=== PATIENT | female | born 1985 | race Caucasian/White ===

== ENCOUNTER → 2016-12-27 | Outpatient (CLI) | payer OTHER | LOC: FIMAGING 14:43 | PROVIDERS: ATTEND Physician Assistant Medical | DX: M25.561 Pain in right knee (principal) ==

== ENCOUNTER 2017-08-04 12:19 | Emergency (ER) | payer OTHER ==
[2017-08-04 12:29] VITALS: RESP 18; TEMP 99
[2017-08-04] MEDS ORDERED: NS 1,000 ML IV ONE (12:45)
--- NOTE | 2017-08-04 12:48 | EDPHY ---
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 She states that she has constant abdominal cramping and bloating. Frequent diarrhea, occasional episodes of rectal pain. General abdominal discomfort. No vomiting. No bloody stool. No fevers. She has had the symptoms for about 10 years. She saw her gastrologist but 10 years ago at [facility] and had a colonoscopy. She was diagnosed with irritable bowel syndrome as well as a small internal hemorrhoid. Since then her symptoms have continued and possibly worsened. She is on an antidepressant and anxiety medication. She states that last night she became extremely anxious and was concerned that maybe she has developed ovarian cancer because she has never been this bloated before. She did have a episode of diarrhea last night that was normal for her. She has never had any abdominal surgeries. She denies . No vaginal symptoms. No urinary symptoms. She has not tried any dietary changes. REVIEW OF SYSTEMS: Constitutional: denies: chills, fever, recent illness, recent injury EENTM: denies: blurred vision, double vision, nose congestion Respiratory: denies: cough, shortness of breath Cardiac: denies: chest pain, irregular heart rate, lightheadedness, palpitations Gastrointestinal/Abdominal: See HPI Genitourinary: denies: dysuria, frequency, hematuria, pain Musculoskeletal: denies: joint pain, muscle pain Skin: denies: lesions, rash, jaundice, bruising Neurological: denies: headache, numbness, paresthesia, tingling, dizziness, weakness Hematologic/Lymphatic: denies: blood clots, easy bleeding, easy bruising Immunologic/allergic: denies: HIV/AIDS, transplant EXAM: GENERAL: Well-appearing, well-nourished and in no acute distress. HEAD: Atraumatic, normocephalic. EYES: Pupils equal round and reactive to light, extraocular movements intact, sclera anicteric, conjunctiva are normal. ENT: TMs normal, nares patent, oropharynx clear without exudates. Moist mucous membranes. NECK: Normal range of motion, supple without lymphadenopathy or JVD. LUNGS: Breath sounds clear to auscultation bilaterally and equal. No wheezes rales or rhonchi. HEART: Regular rate and rhythm without murmurs, rubs or gallops. ABDOMEN: Mildly distended, nontender BACK: No CVA tenderness, no spinal tenderness, step-offs or deformities EXTREMITIES: Normal range of motion, no pitting or edema. No clubbing or cyanosis. NEUROLOGICAL: Cranial nerves II through XII grossly intact. Normal speech, normal gait. 5/5 strength, normal movement in all extremities, normal sensation PSYCH: Normal mood, normal affect. SKIN: Warm, dry, normal turgor, no visible rashes or lesions. Source: Patient Exam Limitations: No limitations - Personal History LMP (Females 10-55): 22-28 Days Ago Current Tetanus/Diphtheria Vaccine: Yes Tetanus Vaccine Date: within 10 years - Medical/Surgical History Hx Asthma: No Hx Chronic Respiratory Disease: No Hx Diabetes: No Hx Cardiac Disease: No Hx Renal Disease: No Hx Cirrhosis: No Hx Alcoholism: No Hx HIV/AIDS: No Hx Splenectomy or Spleen Trauma: No Other PMH: GERD, IBS, foot surgery, anxiety disorder - Family History Significant Family History: No pertinent family hx - Social History Smoking Status: Current every day smoker Alcohol Use: Sober Drug Use: None Constitutional: Initial Vital Signs Temperature (C) 37.2 C 08/04/17 12:25 Heart Rate 100 08/04/17 12:25 Respiratory Rate 18 08/04/17 12:25 Blood Pressure 153/95 H 08/04/17 12:25 O2 Sat (%) 99 08/04/17 12:25 O2 Delivery Mode Room Air Allergies/Adverse Reactions: cefaclor [From [facility]] Allergy (Verified 09/16/15 21:11) Penicillins Allergy (Verified 09/16/15 21:11) Home Medications: Medication Instructions Recorded Fluoxetine 02/01/15 Dicyclomine [Bentyl 20 MG (*)] 20 mg PO QID PRN #30 tab 08/04/17 Omeprazole 08/04/17 Ondansetron Odt [Zofran Odt 4 mg 4 mg PO Q4 PRN #20 tab 08/04/17 (RX)] Xanax PRN 08/04/17 Medical Decision Making ED Course/Re-evaluation: 2:30 p.m. the patient feels completely better after Bentyl and Zofran. She has been hydrated. Her repeat abdominal exam is benign. She is relieved that we did not find any significant abnormality on the CT scan. She had a Pap smear last year that is negative and has a repeat exam scheduled next week. She declines further workup or testing at this time. Differential Diagnosis: Partial list of the Differential diagnosis considered include but were not limited to; IBS, diarrhea and although unlikely based on the history and physical exam, I also considered obstruction, ischemia, appendicitis, biliary disease. I discussed these differential diagnoses and the plan with the patient as well as the usual and expected course. The patient understands that the diagnosis is provisional and that in medicine we are not always correct and that further workup is often warranted. Usual and customary warnings were given. All of the patient's questions were answered. The patient was instructed to return to the emergency department should the symptoms at all worsen or return, otherwise to followup with the physician as we discussed. - Data Points Laboratory Results: Laboratory Results 08/04/17 13:03 08/04/17 13:03 Medications Given: Discontinued Medications Dicyclomine HCl (Bentyl) 20 mg PO EDNOW ONE Stop: 08/04/17 13:07 Last Admin: 08/04/17 13:15 Dose: 20 mg Sodium Chloride (Ns) 1,000 mls @ 0 mls/hr IV EDNOW ONE; Wide Open PRN Reason: Protocol Stop: 08/04/17 12:46 Last Admin: 08/04/17 13:00 Dose: 1,000 mls Ondansetron HCl (Zofran) 4 mg IVP EDNOW ONE Stop: 08/04/17 13:05 Last Admin: 08/04/17 13:15 Dose: 4 mg Departure - Departure Disposition: Home, Routine, Self-Care Clinical Impression: Bloating Abdominal pain Qualifiers: Abdominal location: generalized Qualified Code(s): R10.84 - Generalized abdominal pain Condition: Fair Instructions: Gas and Bloating (ED), Abdominal Pain (ED) Referrals: Rayne Bruno PA [Primary Care Provider] - As per Instructions Shayan Beasley MD [[facility] [place] Primary Care Provider] - As per Instructions Prescriptions: Dicyclomine [Bentyl 20 MG (*)] 20 mg PO QID PRN #30 tab PRN Reason: Cramping Ondansetron Odt [Zofran Odt 4 mg (RX)] 4 mg PO Q4 PRN #20 tab PRN Reason: Nausea & Vomiting
[2017-08-04] MEDS ORDERED: ONDANSETRON 4 MG/2 ML VIAL IVP ONE (13:04)
[2017-08-04 13:06] LABS: ADD DIFF? NO; ADD MORPH? NO; ADD SCAN? NO; ATYPICAL LYMPHOCYTE FLAG 10 (0-99); FRAGMENT RBC FLAG 0 (0-99); HEMATOCRIT 40.5 % (38.0-47.0); LEFT SHIFT FLG 0 (0-99); LIPEMIA HEMOLYSIS FLAG 90 (0-99); MEAN CELL HEMOGLOBIN 31.8 pg (27.9-34.1); MEAN CELL HEMOGLOBIN CONCENTR. 34.6 g/dL (32.4-36.7); MEAN PLATELET VOLUME 8.7 fL (8.7-11.7); PLATELET CLUMPS FLAG 0 (0-99); PLATELET COUNT 210 10^3/uL (150-400); RED CELL DISTRIBUTION WIDTH 11.9 % (11.5-15.2)
[2017-08-04] MEDS ORDERED: DICYCLOMINE 10 MG CAP PO ONE (13:06)
[2017-08-04 13:18] LABS: COLOR YELLOW; LEUKOCYTE ESTERASE,URINE TRACE (NEGATIVE); NITRITE,URINE NEGATIVE (NEGATIVE)
[2017-08-04 13:29] LABS: ALANINE AMINOTRANSFERASE 33 IU/L (9-52); ALBUMIN 4.4 g/dL (3.5-5.0); ALKALINE PHOSPHATASE 59 IU/L (38-126); ANION GAP 12 mEq/L (8-16); ASPARTATE AMINOTRANSFERASE 18 IU/L (14-46); BILIRUBIN,TOTAL 1.4 mg/dL (0.1-1.4); BILIRUBIN-CONJUGATED 0.5 mg/dL (0.0-0.5); BILIRUBIN-UNCONJUGATED 0.9 mg/dL (0.0-1.1); CALCIUM 9.3 mg/dL (8.5-10.4); CARBON DIOXIDE 23 mEq/l (22-31); CHLORIDE 103 mEq/L (97-110); CREATININE 0.8 mg/dL (0.6-1.0); GLOMERULAR FILTRATION RATE > 60; GLUCOSE 75 mg/dL (70-100); POTASSIUM 4.6 mEq/L (3.5-5.2); SODIUM 138 mEq/L (134-144); TOTAL PROTEIN 7.1 g/dL (6.3-8.2)
[2017-08-04] MEDS ORDERED: IOPAMIDOL (ISOVUE-300) 100 ML BTL ONE (13:37)
[2017-08-04 13:38] LABS: BACTERIA TRACE /hpf (NONE SEEN); YEAST OCCASIONAL /hpf (NONE SEEN)
[2017-08-04 14:51] VITALS: BP 114/62; PULSE 65; O2SAT 98
== END 2017-08-04 14:49 | disposition home or self-care (01) ==
LOC: EEVIPCON 12:19 → CED 12:19
DX: R14.0 Abdominal distension (gaseous) (principal); R10.84 Generalized abdominal pain; F17.200 Nicotine dependence, unspecified, uncomplicated; E86.9 Volume depletion, unspecified
CPT/HCPCS: 74177-PO; 80048-PO; 80076-PO; 81003-PO; 81015-PO; 83690-PO; 84703-PO; 85025-PO; 96374; J2405; Q9967

== ENCOUNTER → 2018-04-22 | Outpatient (CLI) | payer OTHER | LOC: FIMAGING 06:51 | PROVIDERS: ATTEND Radiology Diagnostic Radiology | DX: I83.812 Varicose veins of left lower extremity with pain (principal) ==